=== PATIENT | male | born 1950 | race African-American/Black ===

== ENCOUNTER 2018-09-19 10:27 | Outpatient (CLI) | payer MEDICARE ==
[~2018-09-19 10:27] MED LIST: ISOVUE-370 76%-LOCM 1 ML ONE
--- NOTE | 2018-09-19 11:47 | RAD ---
TWO VIEW CHEST: Comparison: 10-11-17 Indication: Malignant neoplasm of prostate. FINDINGS: The lungs are clear. Cardiac silhouette is stable. No significant interval change with regard to the visualized osseous structures. IMPRESSION: Stable chest. POS: [facility]
--- NOTE | 2018-09-19 13:14 | CT ---
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 Left renal cell carcinoma, status post nephrectomy. Micr ohematuria. Prostate cancer. Leukemia. COMPARISON: 06/25/2009 TECHNIQUE: Abdomen and pelvis CT performed with and without IV contrast. Reformatted images are submitted for i nterpretation. FINDINGS: ABDOMEN: Demonstrates dependent atelectatic changes. Normal cardiac silhouette. No significant per icardial fluid. The descending thoracic aorta and the abdominal aorta have an overall normal caliber . There is atherosclerosis. No periaortic fat stranding. There are nonspecific periaortic and aort ocaval lymph nodes. These lymph nodes are not enlarged. The portal vein is patent. The gallbladder is unremarkable. The liver, spleen, pancreas, and right adrenal gland have a normal appearance. The left adrenal glan d is surgically absent. There are nonenlarged, as well as enlarged, gastrohepatic lymph nodes. The largest lymph node measur es 1.8 x 1.1 cm. There is no retrocrural or definite periportal lymphadenopathy. There is stranding of the fat along the left and right perirenal spaces. Bilaterally, no evidence of nephrolithiasis. There is no evidence of hydronephrosis; There is symmetric enhancement of the kid neys. At the level of the lower pole left kidney, there is slight perinephric irregularity. A small focus of fat attenuation is noted. Findings may represent an area of previous surgical resection. Correlate clinically. No abnormal enhancing masses. There is symmetric excretion into decompressed intrarenal and extrarenal collecting systems. There are no filling defects in the opacified intraren al and extrarenal collecting system on the delayed images. There is nonspecific stranding of the fat adjacent to the proximal left ureter. This finding is nonspecific, given the lack of associated obs tructive uropathy. If there is concern for a left ureteral neoplasm, retrograde IVC may be beneficia l. Additionally, possible retrograde evaluation of the urothelium of the proximal left ureter can be performed. No mesenteric mass or free air. There is a small amount of fluid in the right abdominal mesentery. There are scattered nonspecific mesenteric lymph nodes. Limited evaluation of the alimental canal due to lack of oral contrast administration. No evidence o f bowel obstruction. The ileocecal junction is normal. Normal caliber appendix. Scattered fecal ma terial in a nondistended, nondilated colon. PELVIS: there is a mildly enlarged right external iliac lymph node, measuring 1.4 x 1.2 cm. Borderl ine left external iliac lymph node, measuring 1.1 x 0.6 cm. Nonspecific right external iliac lymph n ode, measuring 1.1 x 1.1 cm. No pelvic mass, free air, or free fluid. Surgical clips compatible wit h previous prostatectomy. Contrast opacifies a normal appearing urinary bladder. No lytic or blastic lesions in the osseous structures. IMPRESSION: 1. Symmetric enhancement of the kidneys. No evidence of a definite solid organ mass in either kidne y. 2. No evidence of obstructive uropathy. Nonspecific dilatation and stranding involving the proximal left ureter. 3. Nonspecific gastrohepatic, right external iliac and left external iliac lymph nodes. Correlate c linically. 4. No evidence of obstructive uropathy. 5. Dilatation and periureteral fat stranding involving the proximal left ureter. Additional evaluat ion as recommended in the findings section. POS: [facility]
== END 2018-09-19 10:28 | disposition home or self-care (01) ==
LOC: BICCT 10:27
PROVIDERS: ATTEND Urology
DX: C61 Malignant neoplasm of prostate (principal); D35.02 Benign neoplasm of left adrenal gland; C64.2 Malignant neoplasm of left kidney, except renal pelvis; R31.29 Other microscopic hematuria; Z90.5 Acquired absence of kidney; N28.82 Megaloureter
CPT/HCPCS: 71046; 74178

== ENCOUNTER 2020-11-17 09:09 | Outpatient (CLI) | payer MEDICARE ==
[2020-11-17 09:41] LABS: Estimated GFR-MDRD - POC Greater than 90
[2020-11-17] MEDS ORDERED: Iopamidol 370 76% 100 ML VIAL ONE (14:07)
== END 2020-11-17 09:10 | disposition home or self-care (01) ==
LOC: CT 09:09
PROVIDERS: ATTEND Urology
DX: C61 Malignant neoplasm of prostate (principal); C64.2 Malignant neoplasm of left kidney, except renal pelvis; C95.01 Acute leukemia of unspecified cell type, in remission; R10.9 Unspecified abdominal pain; E27.8 Other specified disorders of adrenal gland; R59.0 Localized enlarged lymph nodes; Z90.5 Acquired absence of kidney; Z90.89 Acquired absence of other organs
CPT/HCPCS: 74178; 82565; Q9967

== ENCOUNTER 2022-06-02 10:03 | Outpatient (CLI) | payer MEDICARE | END 2022-06-02 10:04 | disposition home or self-care (01) | LOC: BICULT 10:03 | PROVIDERS: ATTEND Urology | DX: C64.2 Malignant neoplasm of left kidney, except renal pelvis (principal); Z90.5 Acquired absence of kidney | CPT/HCPCS: 71046; 76770 ==